=== PATIENT | male | born 1965 | race Hispanic/Latino ===

== ENCOUNTER 2018-07-24 17:16 | Emergency (ER) | payer OTHER ==
[2018-07-24] MEDS ORDERED: OCTYL 2-CYANOACRYLATE 1 EACH TP ONE (17:48)
[2018-07-24] MEDS ORDERED: TETANUS/DIPHTHERIA TOXOID [ADULT] 0.5 ML VIAL IM ONE (19:22)
[2018-07-24] MEDS ORDERED: ACETAMINOPHEN 325 MG TAB ONE (19:30)
== END 2018-07-24 19:38 | disposition home or self-care (01) ==
LOC: EDH 17:16
DX: S01.81XA Laceration without foreign body of other part of head, initial encounter (principal); F41.9 Anxiety disorder, unspecified; Y04.8XXA Assault by other bodily force, initial encounter; Y93.89 Activity, other specified; Y92.89 Other specified places as the place of occurrence of the external cause; Y99.8 Other external cause status
CPT/HCPCS: 12011; 70450; 70486; 73060; 90471; 90714